=== PATIENT | male | born 1955 | race Caucasian/White ===

== ENCOUNTER 2023-04-09 10:47 | Outpatient (RCR) | payer MEDICARE, BC, SELFPAY ==
--- NOTE | 2023-06-07 08:12 | ONC.NURNOTE ---
Dx: Malignant Neoplasm of the tongue base
== END 2023-10-06 23:59 | disposition home or self-care (01) ==
LOC: CCIC 10:47
PROVIDERS: PCP Physician Assistant; Visit Provider Internal Medicine Hematology & Oncology
DX: C01 Malignant neoplasm of base of tongue (principal)
CPT/HCPCS: 99211

== ENCOUNTER 2024-05-31 11:52 | Outpatient (CLI) | payer MEDICARE, BC, SELFPAY | END 2024-05-31 11:53 | disposition home or self-care (01) | LOC: MRI 11:53 | PROVIDERS: PCP Physician Assistant; Visit Provider Physician Assistant | DX: C61 Malignant neoplasm of prostate (principal) | CPT/HCPCS: 72195 ==